=== PATIENT | male | born 1945 | race Caucasian/White ===

== ENCOUNTER → 2019-08-01 | Outpatient (CLI) | payer MEDICARE, MEDICAID ==
[~2019-08-01] MED LIST: ACCUTES AD; ATIV1TAB7 PO; CALC-218 PO; CHLOR10TAB PO; COLA100C5 PO; LACT10SO3 PO; LINZ290C PO; METF-839 PO; MOM30SS PO; PROS5TAB PO; PROT20TA11 PO; REGL5TAB2 PO; [UNRECOGNIZED DRUG - OTHER] TOP
== END ==
LOC: M LABSMTC 08:41
PROVIDERS: ATTEND Anesthesiology
DX: Z01.818 Encounter for other preprocedural examination (principal); Z11.59 Encounter for screening for other viral diseases

== ENCOUNTER 2019-08-04 10:19 | Day surgery (SDC) | payer MEDICARE, MEDICAID ==
[~2019-08-04] VITALS: Ht 172.7 cm; Wt 71.7 kg
[~2019-08-04 10:19] MED LIST changes: +LIDOCAINE 2% 100MG/5ML SDV (FOR ANES.) As Ordered ONE; +NS 1,000 ML IV ONE; +propofoL 200 MG/20 ML VIAL As Ordered ONE
[2019-08-04] MEDS ORDERED: fentaNYL 100 MCG/2 ML INJECTION (J3010) As Ordered ONE (11:09)
[2019-08-04] MEDS ORDERED: MIDAZOLAM INJ 2MG/2ML VIAL (J2250 PER 1MG) As Ordered ONE (11:22)
[2019-08-04] MEDS ORDERED: ePHEDrine SULFATE 25 MG/5 ML(5MG/ML) SYRINGE As Ordered ONE (12:10)
[2019-08-04] MEDS ORDERED: GLYCOPYRROLATE INJ 0.2 MG/ML 2 ML VIAL As Ordered ONE (12:16)
--- NOTE | 2019-08-04 12:19 | ROOR ---
Patient Name: Nickolas Gomes Procedure Date: 08/04/2019 11:38 AM Date of : 1945 Age: 73 Room: [facility] Gender: Male Note Status: Finalized Procedure: Upper GI endoscopy Indications: Follow-up of gastric ulcer Providers: Jonathon CAMPOVERDE MD Referring MD: JAKE BECERRIL Requesting Provider: Medicines: Monitored Anesthesia Care Complications: No immediate complications. Procedure: Pre-Anesthesia Assessment: - The heart rate, respiratory rate, oxygen saturations, blood pressure, adequacy of pulmonary ventilation, and response to care were monitored throughout the procedure. The Endoscope was introduced through the mouth, and advanced to the second part of duodenum. The upper GI endoscopy was accomplished without difficulty. The patient tolerated the procedure well. Findings: There were esophageal mucosal changes suspicious for long-segment Green's esophagus present in the lower third of the esophagus. The maximum longitudinal extent of these mucosal changes was 10 cm in length. Mucosa was biopsied with a cold forceps for histology randomly from 25 to 35 cm from the incisors. Abnormal motility was noted in the esophagus. There is a decrease in motility of the esophageal body. The distal esophagus/lower esophageal sphincter is open. A medium-sized hiatal hernia was present. Two erosions were found in the gastric antrum. Biopsies were taken with a cold forceps for histology. The exam of the stomach was otherwise normal. The examined duodenum was normal. 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 Smooth, circumferential, no nodularityseen. Biopsied. - Tortuous esophagus with decreased esophageal motility. - Medium-sized hiatal hernia. - 2 small antral gastric erosions. Biopsied. - Normal examined duodenum. Recommendation: - Use Protonix (pantoprazole) 20 mg PO BID indefinitely. - Telephone endoscopist for pathology results in 2 weeks. - Repeat upper endoscopy at appointment to be scheduled for surveillance of Green's esophagus and for surveillance based on pathology results. - (the script was sent to your pharmacy on file) - Return to referring physician as previously scheduled. Jonathon Campoverde MD Jonathon CAMPOVERDE MD 08/04/2019 12:18:55 PM Electronically signed by Jonathon CAMPOVERDE MD Number of Addenda: 0 Note Initiated On: 08/04/2019 11:38 AM Estimated Blood Loss: Estimated blood loss: none.
--- NOTE | 2019-08-04 12:51 | ROOR ---
Patient Name: Nickolas Gomes Procedure Date: 08/04/2019 11:40 AM Date of : 1945 Age: 73 Room: [facility] Gender: Male Note Status: Finalized Procedure: Colonoscopy Indications: Constipation Providers: Jonathon CAMPOVERDE MD Referring MD: JAKE BECERRIL Requesting Provider: Medicines: Monitored Anesthesia Care Complications: No immediate complications. Procedure: Pre-Anesthesia Assessment: - The heart rate, respiratory rate, oxygen saturations, blood pressure, adequacy of pulmonary ventilation, and response to care were monitored throughout the procedure. The Colonoscope was introduced through the anus and advanced to the terminal ileum, with identification of the appendiceal orifice and IC valve. The colonoscopy was somewhat difficult due to inadequate bowel prep. Successful completion of the procedure was aided by lavage. The patient tolerated the procedure well. The quality of the bowel preparation was adequate and fair. The bowel preparation used was TriLyte via Split Dose. (total of 8 liters/neurogenic prep) dose instruction. Findings: The perianal and digital rectal examinations were normal. (EXAM: Complete, PREP: Suboptimal, requiring lavage and suctioning. Prep is fair/adequate ) The colon (entire examined portion) was significantly redundant. Advancing the scope required straightening and shortening the scope to obtain bowel loop reduction. Internal hemorrhoids were found during retroflexion. The hemorrhoids were moderate. The exam was otherwise without abnormality on direct and retroflexion views. Impression: - (EXAM: Complete, PREP: Suboptimal, but adequate) - Long compliant and redundant colon. - Internal hemorrhoids. - The examination was otherwise normal on direct and retroflexion views. - No specimens collected. Recommendation: - Continue present medications. - Return to referring physician as previously scheduled. Jonathon Campoverde MD Jonathon CAMPOVERDE MD 08/04/2019 12:51:16 PM Electronically signed by Jonathon CAMPOVERDE MD Number of Addenda: 0 Note Initiated On: 08/04/2019 11:40 AM Estimated Blood Loss: Estimated blood loss: none.
[2019-08-04 13:15] VITALS: BP 130/87
== END 2019-08-04 13:26 | disposition home or self-care (01) ==
LOC: M OPP 10:19
PROVIDERS: ATTEND Internal Medicine Gastroenterology
DX: K64.8 Other hemorrhoids (principal); K59.00 Constipation, unspecified; Q43.8 Other specified congenital malformations of intestine; K22.8 Other specified diseases of esophagus; K22.4 Dyskinesia of esophagus; K44.9 Diaphragmatic hernia without obstruction or gangrene; K25.9 Gastric ulcer, unspecified as acute or chronic, without hemorrhage or perforation; E11.9 Type 2 diabetes mellitus without complications; Z79.84 Long term (current) use of oral hypoglycemic drugs; Z79.899 Other long term (current) drug therapy; Z88.8 Allergy status to other drugs, medicaments and biological substances
CPT/HCPCS: 43239; 45378; 88305; J2250; J3010